=== PATIENT | female | born 2000 | race Caucasian/White ===

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

== ENCOUNTER → 2018-02-16 | Outpatient (CLI) | payer OTHER | LOC: M SMT 14:01 | DX: R06.02 Shortness of breath (principal) | CPT/HCPCS: 71046 ==

== ENCOUNTER 2018-04-20 10:23 | Emergency (ER) | payer OTHER | END 2018-04-20 12:37 | disposition home or self-care (01) | LOC: M ED 10:23 | DX: J45.901 Unspecified asthma with (acute) exacerbation (principal); F17.210 Nicotine dependence, cigarettes, uncomplicated; Z79.899 Other long term (current) drug therapy; Z79.51 Long term (current) use of inhaled steroids | CPT/HCPCS: 71046 ==

== ENCOUNTER 2018-05-11 09:36 | Emergency (ER) | payer OTHER ==
[2018-05-11] MEDS: ACETAMINOPHEN TAB 650MG DOSE (2X325MG) PO (10:38)
[2018-05-11 11:08] LABS: CONTROL LINE HCG INT CTR LINE PRESENT; HCG, SERUM QUALITATIVE NEGATIVE (NEGATIVE)
[2018-05-11] MEDS: NORCO, ANEXSIA 5/325MG TABLET (HYDROcodone/ACETAMINOPHEN) PO (11:47)
== END 2018-05-11 11:59 | disposition home or self-care (01) ==
LOC: M ED 09:36
DX: N94.6 Dysmenorrhea, unspecified (principal)
CPT/HCPCS: 84703

== ENCOUNTER → 2018-07-16 | Outpatient (CLI) | payer OTHER | LOC: M LRY 12:47 | DX: R06.2 Wheezing (principal) | CPT/HCPCS: 71046 ==

== ENCOUNTER → 2018-07-16 | Outpatient (REF) | payer OTHER | LOC: M SFHCLERA 12:58 | DX: N61.0 Mastitis without abscess (principal) | CPT/HCPCS: 87186 ==

== ENCOUNTER 2018-09-25 09:19 | Emergency (ER) | payer OTHER | END 2018-09-25 10:16 | disposition home or self-care (01) | LOC: M ED 09:19 | DX: S99.912A Unspecified injury of left ankle, initial encounter (principal); W00.0XXA Fall on same level due to ice and snow, initial encounter; Y92.018 Other place in single-family (private) house as the place of occurrence of the external cause; F17.210 Nicotine dependence, cigarettes, uncomplicated | CPT/HCPCS: 73610 ==